=== PATIENT | female | born 1965 | race Caucasian/White ===

== ENCOUNTER 2019-11-25 13:31 | Outpatient (CLI) | payer BC, SELFPAY ==
--- NOTE | ~2019-11-25 | XR_ITS ---
EXAMINATION: XR lumbar spine 2-3V DATE: 11/25/2019 13:45 INDICATION: Low back pain. TECHNIQUE: 3 views of lumbar spine were obtained. COMPARISON: None. FINDINGS: Bone alignment is normal. Vertebral body heights and intervertebral disc heights are normal . The facet joints are normal. IMPRESSION: 1. Normal lumbar spine. Reviewed, dictated and finalized at location A. ING AND VENTILATION ENGINEER IMPRESSION: 1. Normal lumbar spine.
== END 2019-11-25 13:32 ==
PROVIDERS: PCP Nurse Practitioner Family; Visit Provider Nurse Practitioner Family
DX: E56.9 Vitamin deficiency, unspecified (principal); M54.9 Dorsalgia, unspecified
CPT/HCPCS: 72100

== ENCOUNTER 2021-02-02 13:10 | Outpatient (CLI) | payer BC, SELFPAY ==
--- NOTE | 2021-02-02 13:35 | ECHO_ITS ---
Patient Info Name: Padmini Kidd Age: 55 years : 1965 Gender: Female Ht: 62 in Wt: 126 lbs BSA: 1.59 m2 HR: 64 bpm BP: 136 / 91 mmHg Technical Quality: Good Exam Date: 02/02/2021 1:52 PM Exam Location: [facility] Patient Status: Outpatient Admit Date: 02/02/2021 Staff Ordering Physician: Gavi Phillips Dish Cloth Inspector: Harris Avilez RDCS, RT Attending Provider: Gavi Phillips Referring Physician: Jacqueline KENDRICK; Exam Type: CA echo doppler color flow Study Info Indications R00.2 - Palpitations Complete two-dimensional, color flow and Doppler transthoracic echocardiogram is performed. Strain analysis performed. Summary 1. Complete two-dimensional, color flow and Doppler transthoracic echocardiogram is performed. 2. Left ventricular chamber dimension is normal. 3. Left ventricular systolic function is normal, estimated at 60-65%. 4. The left ventricular diastolic function is abnormal. 5. E/e' 10 is mildly elevated. 6. Global longitudinal strain is normal at -20.5%. 7. There is trace mitral valve regurgitation. Left Ventricle E/e' 10 is mildly elevated. Global longitudinal strain is normal at -20.5%. Left ventricular chamber dimension is normal. Left ventricular systolic function is normal, estimated at 60-65%. The left ventricular diastolic function is abnormal. Right Ventricle Right ventricular chamber dimension is normal. Right ventricular systolic function is normal. Left Atria Left atrial chamber dimension is normal. Right Atria Right atrial chamber dimension is normal. Aortic Valve The aortic valve is trileaflet. There is no aortic valve stenosis. There is no aortic valve regurgitation. Pulmonic Valve There is no pulmonic regurgitation. Mitral Valve There is no mitral valve stenosis. There is trace mitral valve regurgitation. Tricuspid Valve There is no tricuspid valve regurgitation. Pericardium/Pleural There is no pericardial effusion. Inferior Vena Cava Normal inferior vena cava with >50% collapse upon inspiration consistent with normal right atrial pressure, 5 mmHg. Aorta The aortic root size at the sinus of Valsalva is normal. Left Ventricular Outflow Tract Name Value Normal LVOT 2D LVOT Diameter 1.9 cm LVOT Doppler LVOT Peak Gradient 2 mmHg LVOT Mean Gradient 1 mmHg LVOT VTI 17 cm LVOT VTI/AV VTI Ratio 0.8 LVOT Stroke Volume 49 ml LVOT CO 3.6 l/min LVOT CI 2.2 l/min/m2 Mitral Valve Name Value Normal MV Doppler MV Decel Dyer 503 cm/s2 MV PHT 48 ms MV Area (PHT)
== END 2021-02-02 13:11 | disposition home or self-care (01) ==
LOC: ANHCARD 13:11
PROVIDERS: PCP Family Medicine; Visit Provider Nurse Practitioner Family
DX: R00.2 Palpitations (principal)
CPT/HCPCS: 93306

== ENCOUNTER 2021-03-15 07:38 | Outpatient (CLI) | payer BC, SELFPAY ==
--- NOTE | ~2021-03-15 | DEXA_ITS ---
Bone Density Report Name: Padmini Kidd Age: 55 Sex: Female Ethnicity: White Date of : 1965 Indication: postmenopausal; Referring Provider: Ioana Summers Study: Bone densitometry was performed. Exam Date: March 15, 2021 Accession number: [id number] Bone Density: Region BMD T-score Z-score Classification AP Spine (L1-L4) 0.890 -1.4 -0.3 Osteopenia Femoral Neck (Left) 0.686 -1.5 -0.4 Osteopenia Total Hip (Left) 0.793 -1.2 -0.5 Osteopenia Total Hip Bilateral Avg 0.792 -1.2 -0.5 Osteopenia Femoral Neck (Right) 0.668 -1.6 -0.6 Osteopenia Total Hip (Right) 0.791 -1.2 -0.5 Osteopenia World Health Organization criteria for BMD impression classify patients as: Normal (T-score at or above -1.0), Osteopenia (T-score between -1.0 and -2.5), or Osteoporosis (T-score at or below -2.5). 10-year Fracture Risk(1): Major Osteoporotic Fracture 6.8% Hip Fracture 0.6% Reported Risk Factors: [place] (), Neck BMD=0.668, BMI=23.8 (1) FRAX(R) Version 3.08. Fracture probability calculated for an untreated patient. Fracture probability may be lower if the patient has received treatment. Clinical Information Provided by Patient: Has used the following medications: Vitamin D, Calcium Patient maximum height was 61 Onset of menses at age 12 Number of children 1 Impression: The patient has low bone mass, based on the Right Femoral Neck T-score. The patient has an estimated ten-year risk of hip fracture of 0.6% and an estimated ten-year risk of major fracture of 6.8%, based on the WHO FRAX algorithm. Discussion: BONE DENSITY IS LOW AT ONE OR MORE SKELETAL SITES. This patient's lowest T-score is low at one or more skeletal sites. It meets the World Health Organization's (WHO) criteria for ?low bone mass? (T-score between -1.0 and -2.5). The patient's 10-year risk of fracture as calculated by FRAX is less than the threshold where pharmacological therapy is recommended by the National Osteoporosis Foundation (NOF). However, all treatment decisions require clinical judgment and consideration of individual patient factors, including patient preferences, comorbidities, previous drug use, risk factors not captured in the FRAX model (e.g., frailty, falls, vitamin D deficiency, increased bone turnover, interval significant decline in bone density) and possible under or overestimation of fracture risk by FRAX. The patient should follow a healthful lifestyle (good nutrition with adequate calcium and vitamin D, and appropriate weight-bearing exercise). Follow-Up: Consider repeating this study in 2 to 3 years to reassess this patient's status, or sooner if there is some new clinical indication. Reported by: RYAN on 03/15/2021 8:12:00 AM. [facility]
== END 2021-03-15 07:39 | disposition home or self-care (01) ==
LOC: ANHIMG 07:40
PROVIDERS: PCP Family Medicine; Visit Provider Physician Assistant Medical
DX: Z13.820 Encounter for screening for osteoporosis (principal); Z78.0 Asymptomatic menopausal state; M85.88 Other specified disorders of bone density and structure, other site; M85.852 Other specified disorders of bone density and structure, left thigh; M85.851 Other specified disorders of bone density and structure, right thigh
CPT/HCPCS: 77080

== ENCOUNTER 2021-03-15 07:41 | Outpatient (CLI) | payer BC, SELFPAY ==
--- NOTE | ~2021-03-15 | MM_ITS ---
EXAMINATION: MM screening jovan BI w moe HISTORY: Screening mammogram TECHNIQUE: Craniocaudal and mediolateral oblique 3-D tomosynthesis images were obtained and synthetic 2-D images were generated. CAD analysis was submitted and interpreted. COMPARISON: No prior mammogram is available for comparison at this institution. BREAST PARENCHYMAL COMPOSITION: The breasts are heterogeneously dense, which may obscure small masses . ; FINDINGS: 8mm mass is noted in the posterior lower outer left breast (craniocaudal Tomosynthesis imag e ; MLO Tomosynthesis image ). Diagnostic left mammogram and left breast ultrasound examina tion are recommended. 4.5 x 8 mm circumscribed opacity is noted in the central right breast (craniocaudal Tomosynthesis narciso ge ); diagnostic right mammogram and right breast ultrasound examination are recommended. Scattered bilateral largely punctate benign-appearing microcalcifications are noted. Magnification vi ews are recommended for better definition. IMPRESSION: 1. Bilateral breast masses and bilateral microcalcifications 2. Bilateral diagnostic mammography and bilateral breast ultrasound examination are recommended. BI-RADS Category 0: Incomplete: Needs additional imaging evaluation. Reviewed, dictated and finalized at location A.
== END 2021-03-15 07:42 | disposition home or self-care (01) ==
LOC: ANHIMG 07:43
PROVIDERS: PCP Family Medicine; Visit Provider Obstetrics & Gynecology
DX: Z12.31 Encounter for screening mammogram for malignant neoplasm of breast (principal); R92.8 Other abnormal and inconclusive findings on diagnostic imaging of breast
CPT/HCPCS: 77063; 77067

== ENCOUNTER 2021-04-12 02:00 | Day surgery (SDC) | payer BC, SELFPAY ==
[2021-03-24 14:30] VITALS: BMI 23.8
[2021-04-12 08:22] VITALS: BP 135/80; PULSE 89; RESP 16; TEMP 36.2; O2SAT 100; BMI 23.9
[2021-04-12] MEDS: LACTATED RINGERS 1,000 ML 150 ML IV CONT (08:25)
--- NOTE | 2021-04-12 08:42 | WPDANESEPPF ---
Anes - Initial Pre Proc Eval Procedure: Operation Date: 04/12/21 09:15 Proposed Procedures p Esophagogastroduodenoscopy & Screening Colonoscopy - Roni Gonzales MD Date/Time: 04/12/21 08:42 Surgeon: Roni Gonzales MD Pre Op Diagnosis: neoplasm screening Patient Data Age: 55 Gender: F Height: 1.55 m Weight: 57.5 kg Last Vital Signs Temp 97.1 F L 04/12/21 08:22 Pulse 89 04/12/21 08:22 Resp 16 04/12/21 08:22 BP 135/80 04/12/21 08:22 Pulse Ox 100 04/12/21 08:22 Allergies Allergy/AdvReac Type Severity Reaction Status Date / Time No Known Allergies Allergy Verified 04/12/21 08:22 Home Medications Medication Instructions Recorded Confirmed Type cholecalciferol (vitamin D3) 1,250 1,250 mcg PO WEEKLY #8 cap 01/12/21 04/12/21 Rx mcg (50,000 unit) capsule sod picosulf 10 mg-magnes 3.5 160 ml PO BID #160 ml 01/29/21 02/01/21 Rx gram-citric 12 gram/160 mL oral solution buspirone 7.5 mg tablet 7.5 mg PO BID #60 tablet 02/01/21 04/12/21 Rx celecoxib 200 mg capsule 200 mg PO DAILY #30 cap 03/01/21 04/12/21 Rx Patient hx anesthesia problems: none Family hx anesthesia problems: none PMFSH Past Medical History Medical History (Updated 02/18/21 @ 18:33 by Harmony Mckenna) BMI 23.0-23.9, adult GERD (gastroesophageal reflux disease) Family History Family History Other Family history of arthritis Family history of malignant neoplasm Family history of malignant neoplasm of breast Social History Social History Alcohol intake: current Substance use type: does not use Living arrangements: with family Gender identity (if verbalized by the patient): Female Anes - Eval Final PreProcedure Day of Procedure 04/12/21 08:42 Patient weight: normal Heart: regular rate and rhythm Lungs: clear to auscultation Airway: Mallampati scale class II Neurological: alert and oriented Last oral intake: >/= 8 hours ASA classification: II Emergent: no Anesthetic plan: proceed Anesthesia type and monitoring: general GIVS and standard monitoring Informed Consent: The patient's anesthetic plan and its attendant risks and benefits were discussed with the patient/family/POA. Questions were solicited and answers provided to the satisfaction of the patient/family/POA.
--- NOTE | 2021-04-12 09:13 | PM.HPGS ---
History of Present Illness History of Present Illness Consent: Risks, benefits, and alternatives have been discussed and questions answered. Patient agrees to proceed with procedure. Chief complaint: neoplasm screening Narrative: Padmini Kidd is a 55 year old female here for screening colonoscopy- never had one and also with gerd Review of Systems Constitutional: Constitutional: Denies headache(s) and Denies weakness Eyes: Eyes: Denies blurry vision ENT: Reports Normal hearing present, Denies headache(s) and Denies neck pain Cardiovascular: Cardiovascular: Denies chest pain and Denies dyspnea Respiratory: Respiratory: Denies dyspnea Gastrointestinal: Gastrointestinal: Reports no additional gastrointestinal complaints Genitourinary: Genitourinary: Denies dysuria Musculoskeletal: Musculoskeletal: Denies neck pain Integumentary/Breasts: Skin/Breast: Denies dry skin Neurologic: Reports Normal hearing present, Denies headache(s) and Denies weakness Psychiatric: Psychiatric: Denies anxiety Endocrine: Endocrine: Denies change in body appearance Hematologic/Lymphatic: Hematologic/Lymphatic: Denies easy bleeding Allergic/Immunologic: Allergic/Immunologic: Denies urticaria PMF Past Medical History Medical History (Updated 02/18/21 @ 18:33 by Harmony Mckenna) BMI 23.0-23.9, adult GERD (gastroesophageal reflux disease) Family History Family History Other Family history of arthritis Family history of malignant neoplasm Family history of malignant neoplasm of breast Social History Social History Alcohol intake: current Substance use type: does not use Living arrangements: with family Gender identity (if verbalized by the patient): Female Meds Home Medications and Allergies Home Medications Medication Instructions Recorded Confirmed Type cholecalciferol (vitamin D3) 1,250 1,250 mcg PO WEEKLY #8 cap 01/12/21 04/12/21 Rx mcg (50,000 unit) capsule sod picosulf 10 mg-magnes 3.5 160 ml PO BID #160 ml 01/29/21 02/01/21 Rx gram-citric 12 gram/160 mL oral solution buspirone 7.5 mg tablet 7.5 mg PO BID #60 tablet 02/01/21 04/12/21 Rx celecoxib 200 mg capsule 200 mg PO DAILY #30 cap 03/01/21 04/12/21 Rx Allergies Allergy/AdvReac Type Severity Reaction Status Date / Time No Known Allergies Allergy Verified 04/12/21 08:22 Vital Signs Vital Signs - 24 hr 04/12/21 08:22 Temperature 97.1 F L Pulse Rate 89 Respiratory Rate 16 Blood Pressure 135/80 Pulse Oximetry 100 Exam Const: General: comfortable and no acute distress HENMT: General nose exam: Normal nares present Eyes: General: appearance normal, both eyes and all related structures Neck: Neck: no JVD Resp: Auscultation: clear to auscultation bilaterally Cardio: Rate: regular rate Rhythm: regular rhythm GI: Inspection: non-distended GI Palp: Yes Soft to palpation Skin: General skin exam: normal color Neuro: General: gait normal Speech: normal speech Extrem: General: normal to inspection Psych: Mental Status: mental status grossly normal Assessment and Plan Assessment and plan (1) GERD (gastroesophageal reflux disease): Code(s): K21.9 - Gastro-esophageal reflux disease without esophagitis Status: Acute Assessment and Plan: egd with bx (2) Screening for colon cancer: Code(s): Z12.11 - Encounter for screening for malignant neoplasm of colon Status: Acute Assessment and Plan: colonoscopy
[2021-04-12] MEDS: BENZOCAINE (*SP) 60 ML SPRAY CAN (HURRICAINE) 1 SPRAY MUCOUS MEM (09:20)
[2021-04-12 09:42] VITALS: BP 91/52; PULSE 79; RESP 16; O2SAT 100
[2021-04-12 09:52] VITALS: BP 103/61; PULSE 72; RESP 13; O2SAT 100
[2021-04-12 10:02] VITALS: BP 101/55; PULSE 76; RESP 14; O2SAT 100
== END 2021-04-12 10:13 | disposition home or self-care (01) ==
PROVIDERS: PCP Family Medicine; Visit Provider Internal Medicine Gastroenterology
PROC: 0DJ08ZZ Inspection of Upper Intestinal Tract, Via Natural or Artificial Opening Endoscopic (ICD-10-PCS; CPT 43235; principal; 2021-04-12 09:15)
DX: Z12.11 Encounter for screening for malignant neoplasm of colon (principal); K21.9 Gastro-esophageal reflux disease without esophagitis; K57.30 Diverticulosis of large intestine without perforation or abscess without bleeding; K64.8 Other hemorrhoids
CPT/HCPCS: 45378; 43239; 88305; J2704; J7120

== ENCOUNTER 2021-04-12 10:30 | Outpatient (CLI) | payer BC, SELFPAY ==
--- NOTE | ~2021-04-12 | MMUS_ITS ---
EXAMINATION: MM diagnostic mammo unilat LT, US breast LT limited HISTORY: New left breast mass TECHNIQUE: Additional 3-D tomosynthesis images of the left breast were performed and synthetic 2-D im ages were generated. CAD analysis was submitted and interpreted. High resolution Limited left breast ultrasound was performed. COMPARISON: Comparison to multiple prior studies sequentially, with oldest reviewed study dated 09/2015. BREAST PARENCHYMAL COMPOSITION: The breasts are heterogenously dense, which may obscure small masses. FINDINGS: MAMMOGRAPHIC FINDINGS: There is a radiolucent mass in the upper outer quadrant of the left breast posteriorly with circumscr ibed margins. No suspicious calcifications or architectural distortion. ULTRASOUND: Limited left breast ultrasound: At 2:00, 7 cm from the nipple, there is a 9 mm cyst, corresponding to the mammographic abnormality. No suspicious solid or vascular masses are identified in the left [address] to suggest malignancy. IMPRESSION: 1. No evidence for malignancy in the left breast. 2. Routine yearly screening mammogram and regular clinical breast examination are recommended. BI-RADS Category 2: Benign finding(s). Reviewed, dictated and finalized at location A. IMPRESSION: 1. No evidence for malignancy in the left breast. 2. Routine yearly screening mammogram and regular clinical breast examination a re recommended. BI-RADS Category 2: Benign finding(s).
== END 2021-04-12 10:31 | disposition home or self-care (01) ==
LOC: ANHIMG 10:31
PROVIDERS: PCP Family Medicine; Visit Provider Obstetrics & Gynecology
DX: R92.8 Other abnormal and inconclusive findings on diagnostic imaging of breast (principal)
CPT/HCPCS: 76642; 77065